=== PATIENT | male | born 1985 | race Caucasian/White ===

== ENCOUNTER 2025-02-23 09:36 | Day surgery (SDC) | payer OTHER, SELFPAY ==
[2025-02-23 10:05] VITALS: BP 127/94; PULSE 80; RESP 18; TEMP 36.1; O2SAT 97
[2025-02-23] MEDS: LACTATED RINGERS 1,000 ML 150 ML IV (10:12)
--- NOTE | 2025-02-23 10:32 | PM.PREOP ---
Pre-operative Note COVID-19 COVID-19 status: Not tested Interval Note History & Physical reviewed/Exam performed by Physician: Yes Changes to H&P: No ASA Class (for procedural sedation): II
--- NOTE | 2025-02-23 11:00 | PM.OP.COLON ---
Operative Date/Time/Diagnoses Date of procedure: 02/23/25 Time of procedure: 11:00 Pre-op diagnosis: Rectal bleeding Post-op diagnosis: same Procedure & Clinicians Study performed: Colonoscopy Rubber-band ligation of internal hemorrhoids Same procedure as scheduled: Yes Surgeon: Malcom Garcia Procedure Notes Procedure in detail: Surgeon: Malcom Garcia MD Anesthesia: Adrianna Lomax CRNA Procedure: The patient was brought to the endoscopy suite, placed in left lateral decubitus position. The patient was connected to monitoring devices. A time-out was performed. Sedation was administered. Once the patient was adequately sedated, a digital rectal exam was performed and was normal. The scope was then inserted and advanced to the cecum where the appendiceal orifice was identified and photographed. The scope was then slowly withdrawn over greater than 6 minutes. The mucosa was thoroughly inspected. No polyps or other abnormalities were found. The scope was retroflexed in the rectum. Internal hemorrhoids were noted. The scope was straightened and removed. Next rubber-band ligation was performed. Two rubber bands were placed on the left and two on the right. The patient was awakened and brought to recovery. Scope withdrawal time: 7 minutes Sedation time: 11 minute EBL: 2 mL Findings: Internal hemorrhoids Post-procedure Recommendations: Colonoscopy in 10 years Disposition: PACU
[2025-02-23 11:02] VITALS: BP 107/79; PULSE 85; RESP 16; TEMP 36.1; O2SAT 98
[2025-02-23 11:06] VITALS: BP 112/74; PULSE 77; RESP 16; O2SAT 98
[2025-02-23 11:29] VITALS: BP 132/74; PULSE 77; RESP 16; TEMP 36.2; O2SAT 98
== END 2025-02-23 11:34 | disposition home or self-care (01) ==
PROVIDERS: Referring Provider Surgery; Visit Provider Surgery
PROC: 0DJD8ZZ Inspection of Lower Intestinal Tract, Via Natural or Artificial Opening Endoscopic (ICD-10-PCS; CPT 45378; principal; 2025-02-23 11:00)
DX: K64.8 Other hemorrhoids (principal)
CPT/HCPCS: 46221; J2704